=== PATIENT | female | born 1950 | race Caucasian/White ===

== ENCOUNTER 2016-06-27 14:43 | Emergency (ER) | payer OTHER ==
--- NOTE | 2016-06-27 18:14 | PROVIDER DOCUMENTATION ---
HPI-Syncope/Dizziness <Carrie Ching - Last Filed: 06/27/16 19:40> - General Source: patient, family - History of Present Illness-Syncope/Dizzy Prior Episodes: reports: multiple episodes today, recent history Onset/Duration: reports: this morning Timing: reports: improving, constant (dizziness) Position/Activity at time of episode: reports: standing (walking) Symptoms prior to episode: reports: none. denies: headache, lightheaded, visual disturbance, nausea/vomiting, chest pain, racing heart, abdominal pain, back pain, confusion, diaphoresis, injury, recent head trauma, rapid heart beat Context: reports: collapsed. denies: lost consciousness, became unresponsive, felt faint, almost passed out, confused after event, incontinent of urine, incontinent of stool, breathing shallow, breathing stopped, lost pulse, seizure activity observed, low blood sugar Loss of Consciousness: no loss of consciousness Location of injury. (If syncope resulted in an injury.): reports: head, RLE Current Symptoms: reports: dizzy, headache. denies: fever, chills, sweaty, chest pain, breathing difficulty, short of breath, abdominal pain, nausea, vomiting, shoulder pain, arm pain, weakness, lightheaded, pale, weak pulse, headache, blurred vision, lightheaded Similar symptoms previously: denies: previous diagnosis, tests, workup for same problem Recently Seen Here or By Another Healthcare Provider: No - Dizziness Severity in ED: reports: mild Dizziness Related Current/Associated Symptoms: reports: dizzy, headache, sense of spinning. denies: nausea/vomiting, weakness, lightheaded, pale, weak pulse, headache, blurred vision, lightheaded, hearing loss, ringing/roaring in ears, earache, sense of falling, syncope, sense of confusion, off balance, cannot walk , cannot stand, unable to sit up, chronic dizziness Any recent trauma/injury?: reports: to head Modifying Factors: improves with: changing position (pt reports dizziness is exacerbated with moving from the supine position to the sitting position). worse with: movement of head, standing position, vomiting, eating, lying down, sleeping, deep breathing, other medication Patient usually:: reports: walks without assistance <Justen Rai - Last Filed: 06/29/16 09:33> - General Chief Complaint: Fall Stated Complaint: FALL Time Seen by Provider: 06/27/16 18:10 Allergies/Adverse Reactions: Patient Allergies Allergy/AdvReac Type Severity Reaction Status Date / Time codeine Allergy Unknown Verified 06/27/16 19:11 Home Medications: Home Medication List Medication Instructions Recorded Confirmed Last Taken Type ATORVAstatin [Lipitor] 06/27/16 Unknown History Duloxetine [Cymbalta] 30 mg PO DAILY 06/27/16 06/27/16 Unknown History Lisinopril 40 mg PO DAILY 06/27/16 06/27/16 Unknown History Trazodone [Desyrel] 50 mg PO DAILY 06/27/16 06/27/16 Unknown History - History of Present Illness-Syncope/Dizzy Nature of Presenting Problem: 66 year old WF presents with c/o headache, right knee pain, dizziness. pt reports she was walking into her laundry room this morning and fell. pt reports she was awake during the episode, did not lose consciousnesses and has a history of same. she denies CP, weakness, palpitations, headache prior to event. pt reports this occurred yesterday and she has had a headache with dizziness since the fall. pt struck her right forehead onto a linoleum floor with incident. she reports she immediately got and has been walking around without difficulty since incident. (Justen Rai) Review of Systems - Adult - REVIEW OF SYSTEMS - ADULT Constitutional: reports: no symptoms reported. denies: chills, fever, fatique Eyes: reports: no symptoms reported. denies: discharge, dry eyes, decreased vision, blurred vision, double vision, eye pain, redness Ears, Nose, Mouth & Throat: reports: no symptoms reported. denies: ear discharge, ear pain, nose pain, loose teeth, throat pain, throat swelling Cardiovascular: reports: no symptoms reported. denies: chest pain, edema, heart murmur, irregular heart rate, orthopnea, palpitations, poor circulation, PND, syncope Respiratory: reports: no symptoms reported. denies: chronic cough, cough, shortness of breath, wheezing Gastrointestinal: reports: no symptoms reported. denies: abdominal pain, diarrhea, nausea, vomiting Genitourinary: reports: no symptoms reported. denies: dysuria, hematuria, urgency Musculoskeletal: reports: see HPI, joint pain (right knee). denies: bone pain, frequent leg cramps, joint swelling, muscle aches, muscle weakness, neck pain Integumentary: reports: no symptoms reported. denies: hives, itching, rash, skin sores/ulcer Neurological: reports: see HPI, dizziness/vertigo, headache/migraines. denies: ataxia, loss of balance, numbness, paresthesia, seizure, slurred speech, syncope , tremors Psychiatric: reports: no symptoms reported Endocrine: reports: no symptoms reported Hematologic/Lymphatic: reports: no symptoms reported Allergic/Immunologic: reports: no symptoms reported All Other Systems: Reviewed and Negative <Justen Rai - Last Filed: 06/29/16 09:33> Past History - Adult - PAST MEDICAL HISTORY-ADULT Review of Records: reports: Old Records Reviewed, Nursing Assessment Review, Medications Reviewed, Social history reviewed & non-contributory. Major Childhood Illnesses: reports: denies history Cardiovascular: reports: HTN, hyperlipidemia Respiratory: reports: denies history Gastrointestinal: reports: denies history Obstetrical/Gynecological: reports: denies history Genitourinary: reports: denies history Musculoskeletal: reports: denies history Neurological: reports: denies history Endocrine/Immune: reports: denies history Other Conditions: reports: denies history - PRIOR SURGERIES/PROCEDURES Surgical/Procedure History: reports: none - PRIOR HOSPITALIZATIONS Prior Hospitalizations: reports: none - FAMILY HISTORY Family History: CAD over 55 yo, CVA/TIA (both parents), HTN - SOCIAL HISTORY Smoking: denies, non-smoker Substance Use: none/never Alcohol Use Frequency: never <Justen Rai - Last Filed: 06/29/16 09:33> Physical Exam-General - PHYSICAL EXAM-ADULT Initial Vital Signs Reviewed: Yes - CONSTITUTIONAL General Appearance: appears well, alert, no apparent distress. negative: mild distress, moderate distress, severe distress, anxious, lethargic, slow to respond, obtunded, combative - EYES Eyes: PERRL/EOMI, pink conjunctivae. negative: conjuctival exudate, EOM palsy, meningismus, pale conjunctivae, photophobia, sclera injected, scleral icterus, subconjunctival hemorrhage - HEAD, EARS, NOSE, MOUTH & THROAT HENMT: normocephalic/atraumatic, moist mucous membranes, normal ENT inspection, pharynx normal. negative: pharyngeal erythema, tonsillar exudate, frontal tenderness, maxillary tenderness - NECK Neck: non-tender, full range of motion, supple, normal inspection. negative: C- spine tenderness, limited range of motion, tender lateral, tender midline - RESPIRATORY Respiratory: chest non-tender, lungs clear, normal breath sounds, no pleuratic chest pain, no respiratory distress, no accessory muscle use. negative: respiratory distress, decreased breath sounds, accessory muscle use, crackles, rales, rhonchi, stridor, wheezing - CARDIOVASCULAR Cardiovascular: normal peripheral pulses, regular rate, rhythm - CHEST (BREASTS) Chest/Breast: no tenderness - GASTROINTESTINAL (ABDOMEN) Abdominal Exam: normal bowel sounds, non tender, soft, no organomegaly. negative: abnormal bowel sounds, distended, guarding, rigid, rebound, tenderness , hernia, mass, hepatomegaly, spleenomegaly, McBurney's point tenderness, Watt 's sign, obturator sign, psoas, Rovsing's sign - GENITOURINARY Female Genitalia/Pelvic Exam: deferred Rectal Exam: deferred Hemoccult Exam: deferred - LYMPHATIC Lymphatic: no adenopathy - MUSCULOSKELETAL Back Exam: normal inspection, no CVA tenderness, no vertebral tenderness. negative: CVA tenderness, decreased range of motion, swelling, vertebral tenderness Extremity: normal range of motion, normal gait, normal inspection, no pedal edema, no calf tenderness, normal capillary refill, pelvis stable, tenderness ( right medial knee with ecchymosis). 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 negative: abnormal cerebellar tests, abnormal coffee shop manager II -XII, abnormal gait, aphasia, EOM palsy, facial droop, focal weakness, motor weakness, sensory deficit, positive romberg's sign - PSYCHIATRIC Psych/Mental Status: normal mood/affect, normal thought content, normal thought process, oriented x 3 <Rai,Justen Neumann - Last Filed: 06/29/16 09:33> Progress - EKG 1 Time of EKG reading by physician:: 19:08 EKG Read and Signed by:: Herve Bronson EKG Interpretation (*Must complete 3 of following elements*): Normal Rate: 70 Rhythm: nsr Comments: Normal ECG <Carrie Ching - Last Filed: 06/27/16 19:40> - XRAY 1 XRAY: Right XRAY Study: Knee Impression: Normal 2 XRAY Study: Chest Impression: Normal - CT/MRI 1 CT Study: Cervical Spine, Head Impression: Normal (per Dr. Srinivasan, see full radiology report for additional findings.) <RaiJusten - Last Filed: 06/29/16 09:33> - PLAN OF CARE/RESULTS Progress/Plan/Lab Results: Laboratory Tests 06/27/16 06/27/16 06/27/16 18:45 18:45 18:45 WBC RBC Hgb Hct MCV MCH MCHC RDW Std Deviation Plt Count MPV Immature Gran % (Auto) Neut % (Auto) Lymph % (Auto) Mclean % (Auto) Eos % (Auto) Baso % (Auto) Immature Gran # (Auto) Neut # (Auto) Lymph # (Auto) Mclean # (Auto) Eos # (Auto) Baso # (Auto) PT INR APTT (Factor Assay) D-Dimer Sodium 141 Potassium 3.4 L Chloride 102 Carbon Dioxide 29 Anion Gap 10 BUN 10 Creatinine 0.8 Estimated GFR/1.73 m2 > 60 BUN/Creatinine Ratio 13 Glucose 102 Calculated Osmolality 280 Calcium 9.8 Magnesium 2.3 Total Bilirubin 0.50 AST 23 ALT 18 Alkaline Phosphatase 118 H Creatine Kinase 63 Troponin T < 0.010 Apr-F-Hgvzuixhjbf Pept 13 Total Protein 7.4 Albumin 4.7 Globulin 3.0 Albumin/Globulin Ratio 2.0 Urine Source Urine Color Urine Clarity Urine pH Ur Specific [place] Urine Protein Urine Ketones Urine Blood Urine Nitrite Urine Bilirubin Urine Urobilinogen Urine Microscopic RBC Urine WBC Ur Epithelial Cells Urine Bacteria Urine Glucose 06/27/16 06/27/16 06/27/16 18:45 18:45 19:35 WBC 6.84 RBC 5.01 Hgb 14.9 Hct 45.5 MCV 90.8 MCH 29.7 MCHC 32.7 L RDW Std Deviation 13.2 Plt Count 277 MPV 9.4 Immature Gran % (Auto) 0.1 Neut % (Auto) 51.9 Lymph % (Auto) 36.1 Mclean % (Auto) 7.6 Eos % (Auto) 3.4 Baso % (Auto) 0.9 H Immature Gran # (Auto) 0.01 Neut # (Auto) 3.55 Lymph # (Auto) 2.47 Mclean # (Auto) 0.52 Eos # (Auto) 0.23 Baso # (Auto) 0.06 PT 12.2 INR 0.87 APTT (Factor Assay) 27.4 D-Dimer 0.31 Sodium Potassium Chloride Carbon Dioxide Anion Gap BUN Creatinine Estimated GFR/1.73 m2 BUN/Creatinine Ratio Glucose Calculated Osmolality Calcium Magnesium Total Bilirubin AST ALT Alkaline Phosphatase Creatine Kinase Troponin T Wum-B-Xphegvzikpd Pept Total Protein Albumin Globulin Albumin/Globulin Ratio Urine Source CLEAN CATCH Urine Color YELLOW Urine Clarity CLEAR Urine pH 7.0 Ur Specific [place] 1.010 Urine Protein NEGATIVE Urine Ketones NEGATIVE Urine Blood NEGATIVE Urine Nitrite NEGATIVE Urine Bilirubin NEGATIVE Urine Urobilinogen 1+(1 mg/dL) Urine Microscopic RBC Not Reportable Urine WBC TRACE A Ur Epithelial Cells <10 Urine Bacteria 2+ Urine Glucose NEGATIVE Orders Category Date Time Status Cardiac Monitoring DIRECTED Care 06/27/16 18:10 Active Oxygen Therapy- ED Nursing DIRECTED Care 06/27/16 18:10 Active Saline Loc NOW Care 06/27/16 18:10 Active CHEST-2 VIEWS [RAD] Stat Exams 06/27/16 18:10 Completed HEAD/C-SPINE W/O CONTRAST [CT] Stat Exams 06/27/16 18:11 Completed KNEE 3 VIEWS RIGHT [RAD] Stat Exams 06/27/16 18:11 Completed CBC WITH ELECTRONIC DIFF [HEME] Stat Lab 06/27/16 18:45 Completed CK PROFILE [SP CHEM] Stat Lab 06/27/16 18:45 Completed COMPREHENSIVE METABOLIC PANEL [CHEM] Stat Lab 06/27/16 18:45 [address] D-DIMER [address] [COAG] Stat Lab 06/27/16 18:45 Completed MAGNESIUM [CHEM] Stat Lab 06/27/16 18:45 Completed PRO B-NATRIURETIC PEPTIDE Stat Lab 06/27/16 18:45 Completed [address]IME WITH INR PL [COAG] Stat Lab 06/27/16 18:[address] [COAG] Stat Lab 06/27/16 18:45 Completed TROPONIN T Stat Lab 06/27/16 18:45 Completed UA NIMS W/REFLEX CULT PL [URINALYSIS] Routine Lab 06/27/16 19:35 Completed Famotidine [Pepcid] Med 06/27/16 20:35 Discontinued 20 mg PO NOW ONE Ketorolac [Toradol] Med 06/27/16 20:35 Discontinued 10 mg PO NOW ONE EKG [EKG] Stat Ther 06/27/16 18:10 Draft Reviewed radiology, labs, H&P with Dr. Bronson, agrees with plan of care and treatment. (Justen Rai) Departure <TamimentCarrie - Last Filed: 06/27/16 19:40> - Departure Time of Disposition Order: 20:34 Certified Medical Emergency: Emergent <Justen Rai - Last Filed: 06/29/16 09:33> - Departure DIAGNOSIS: Dizziness Fall Qualifiers: Encounter type: initial encounter Qualified Code(s): W19.XXXA - Unspecified fall, initial encounter Contusion of right knee Qualifiers: Encounter type: initial encounter Qualified Code(s): S80.01XA - Contusion of right knee, initial encounter Concussion Qualifiers: Encounter type: initial encounter Loss of consciousness presence/duration: without LOC Qualified Code(s): S06.0X0A - Concussion without loss of consciousness, initial encounter Disposition: HOME 01 Condition: Stable Additional Instructions: Follow up with your primary care doctor this week. ED Follow Up Instructions: You have been treated by a care provider in the Emergency Department. These instructions are being provided to you so you can have an understanding of how to care for yourself upon discharge. Upon discharge from the Emergency Department, you are responsible for making arrangements for follow-up care by a physician of your choice. Take all prescribed medications as directed. Return to the Emergency Department immediately for any new or worsening symptoms. You may call the Physician Referral phone number at [phone] to obtain a list of Physicians who are taking new patients. Referrals: Kajal Ortega MD [Primary Care Provider] - Instructions: Fall Prevention and Home Safety, [id number], Concussion, Adult , [id number]-[id number], Contusion, [id number]-[id number], Dizziness, [id number] Attestation - Physician/ CE Attestation Patient care was provided by Advanced Practice Provider:: Yes Advanced Practice Provider:: Justen Rai Advanced Practice Provider documentation review:: The Mid-level provider documentation, treatment plan and medical decision making was reviewed by the physician who agrees with all treatment and medical decision making by the MLP. <Justen Rai - Last Filed: 06/29/16 09:33> Physician Attestation
[2016-06-27 18:50] LABS: MANUAL DIFF NEEDED? NO
[2016-06-27 18:58] LABS: BASO% 0.9 % (0.0-0.8); EOS# 0.23 X1000 (0.0-0.7); EOS% 3.4 % (0.0-10.0); HEMATOCRIT 45.5 % (37.0-47.0); HEMOGLOBIN 14.9 g/dL (12.0-16.0); IMM GRAN# 0.01 X1000 (0.0-0.04); IMM GRAN% 0.1 % (0.0-0.5); LYMPH# 2.47 X1000 (1.2-3.4); LYMPH% 36.1 % (20.5-51.1); MCH 29.7 PG (27-31); MCHC 32.7 g/dL (33-37); MCV 90.8 FL (81-99); MONO# 0.52 X1000 (0.11-0.59); MONO% 7.6 % (1.7-9.3); MPV 9.4 FL (7.4-10.4); NEUT% 51.9 % (42.2-75.2); PLT 277 X1000 (130-400); RBC 5.01 XMIL (4.2-5.4)
--- NOTE | 2016-06-27 19:16 | EKG Report ---
Test Performed on : 06/27/2016 7:08:07 PM Test Reason : CHEST PAIN Blood Pressure : / mmHG Vent. Rate : 070 BPM Atrial Rate : 070 BPM P-R Int : 136 ms QRS Dur : 098 ms QT Int : 394 ms P-R-T Axes : 027 037 038 degrees QTc Int : 425 ms Normal sinus rhythm. Normal ECG No previous ECGs available Unconfirmed Result
[2016-06-27 19:17] LABS: INR 0.87 (0.86-1.15); PROTIME 12.2 Seconds (12.1-15.5)
[2016-06-27 19:18] LABS: PTT PL 27.4 Seconds (22.6-43.9)
[2016-06-27 19:24] LABS: AGAP 10; ALBUMIN 4.7 g/dL (3.5-5.0); ALKALINE PHOSPHATASE 118 U/L (32-104); BUN 10 mg/dL (8-22); CALCIUM 9.8 mg/dL (8.8-10.2); CHLORIDE 102 mmol/L (98-107); CK PROFILE 63 U/L (24-173); COSMO 280; GOT 23 U/L (10-30); GPT 18 U/L (10-36); MAGNESIUM 2.3 mg/dL (1.5-2.7); POTASSIUM 3.4 mmol/L (3.5-5.1); SODIUM 141 mmol/L (136-145); TCO2 29 mmol/L (25-35); TOTAL PROTEIN 7.4 g/dL (6.3-8.3)
[2016-06-27 19:52] LABS: URINE CULTURE PL NEEDED? NO
[2016-06-27 20:00] LABS: BILIRUBIN URINE NEGATIVE (NEGATIVE); BLOOD URINE NEGATIVE (NEGATIVE); CLARITY CLEAR (CLEAR); COLOR YELLOW; GLUCOSE URINE NEGATIVE (NEGATIVE); LEUKOCYTES URINE TRACE (NEGATIVE); NITRITE URINE NEGATIVE (NEGATIVE); PROTEIN URINE NEGATIVE (NEGATIVE); UROBILINOGEN URINE 1+(1 mg/dL)
[2016-06-27 20:10] LABS: URINE EPITHELIAL CELLS <10 /HPF (<10)
[2016-06-27 20:11] LABS: URINE SOURCE CLEAN CATCH
[2016-06-27] MEDS ORDERED: TORADOL PO ONE (20:35)
[2016-06-27] MEDS ORDERED: PEPCID PO ONE (20:35)
--- NOTE | 2016-06-27 20:48 | Diag Imaging Result Document ---
PROCEDURE NAME: HEAD/C-SPINE W/O CONTRAST - 06/27/2016 CT BRAIN AND CERVICAL SPINE WITHOUT FINDINGS: No parenchymal hemorrhage. No epidural or subdural hematoma. No subarachnoid hemorrhage. No skull fracture. No mass identified on this noncontrasted exam. No hydrocephalus. No sinus opacification. No air fluid levels. IMPRESSION: No hemorrhage. No injury. CT CERVICAL SPINE WITHOUT CONTRAST FINDINGS: There is mild reversal of the normal curvature. Mild degenerative changes are found in the lower cervical spine. No precervical soft tissue swelling. No subluxation. No fracture. IMPRESSION: No acute bony injury. A preliminary report was given at 6:51 p.m.
[2016-06-27 20:50] VITALS: BP 148/102
--- NOTE | 2016-06-28 07:36 | Diag Imaging Result Document ---
PROCEDURE NAME: CHEST-2 VIEWS - 06/27/2016 FRONTAL AND LATERAL CHEST, TWO VIEWS: FINDINGS: The lungs are well expanded. The heart is not enlarged. The vessels are not distended. No pneumonia. No pleural effusions. There are small calcified mediastinal lymph nodes. IMPRESSION: No acute abnormality.
--- NOTE | 2016-06-28 07:39 | Diag Imaging Result Document ---
PROCEDURE NAME: KNEE 3 VIEWS RIGHT - 06/27/2016 RIGHT KNEE, THREE VIEWS: FINDINGS: No fracture. No dislocation. Mild patellofemoral joint space narrowing with small patella bone spurs. Mild medial joint space narrowing. IMPRESSION: 1. No acute bony injury. 2. Mild arthritic changes.
== END 2016-06-27 20:49 | disposition home or self-care (01) ==
LOC: P.ED 14:43
DX: S06.0X0A Concussion without loss of consciousness, initial encounter (principal); S80.01XA Contusion of right knee, initial encounter; R42 Dizziness and giddiness; R51 Headache; M25.561 Pain in right knee; W19.XXXA Unspecified fall, initial encounter; I10 Essential (primary) hypertension; E78.5 Hyperlipidemia, unspecified; Z79.899 Other long term (current) drug therapy; Z82.49 Family history of ischemic heart disease and other diseases of the circulatory system
CPT/HCPCS: 70450; 71020; 72125; 80053; 81001; 82550; 83735; 83880; 84484; 85025; 85379; 85610; 85730; 93005